=== PATIENT | female | born 1985 | race American Indian/Alaskan Native ===

== ENCOUNTER 2019-08-01 02:35 | Emergency (ER) | payer SELFPAY ==
[2019-08-01 02:48] VITALS: BP 129/94
[2019-08-01] MEDS ORDERED: HYDROcodone/ACETAMINOPHEN 5-325 MG TAB PO ONE (03:38)
[2019-08-01] MEDS ORDERED: AMOXICILLIN 250 MG/10 ML ORAL SYRINGE PO ONE (03:38)
--- NOTE | 2019-08-01 03:58 | Emergency Department Report ---
ED ENT HPI - General Chief complaint: Dental/Oral Stated complaint: TOOTHACHE Time Seen by Provider: 08/01/19 03:37 Source: patient Mode of arrival: Ambulatory Limitations: No Limitations - History of Present Illness Initial comments: Ms. Ortega is a 33 y/o aaf who presents for dental pain / x 3 weeks. pt states hx of infected dental carries but has been unable to see dentist. There is no fever, no chills, no ear or throat pain. pt is tolerating po on "opposite side" pt request referral to dentist. MD complaint: tooth pain Onset/Timin -: week(s) Location: tooth # (3) Severity: moderate Severity scale (0 -10): 7 Quality: aching Consistency: constant Improves with: none Worsens with: eating, other (hot and cold stimuli ) Context- Dental: history of dental caries, poor dental care Associated Symptoms: toothache - Related Data Previous Rx's Medication Instructions Recorded Last Taken Type Ciprofloxacin HCl [Cipro] 500 mg PO BID #20 tablet 12/25/13 Unknown Rx Hydrocortisone 2.5% [Hytone 2.5% 1 applicatio TP TID #2 tube 02/20/14 Unknown Rx CREAM] Ondansetron [Zofran] 4 mg PO Q6HR PRN #20 tablet 02/20/14 Unknown Rx Vit/Iron Fum/Folic AC 1 each PO QDAY #90 tablet 02/20/14 Unknown Rx [ Vitamin Tablet] metroNIDAZOLE 0.75%(NF) [Metrogel 1 applicatio TP BID #10 tube 02/20/14 Unknown Rx 0.75%] HYDROcodone/ACETAMINOPHEN [[place] 1 each PO Q6HR PRN #20 tablet 02/26/14 Unknown Rx 5/325 Tablet] Ibuprofen [Motrin] 600 mg PO Q8H PRN #60 tablet 02/26/14 Unknown Rx Amoxicillin [Trimox CAP] 500 mg PO BID #20 capsule 04/29/15 Unknown Rx Fluticasone [Flonase] 1 spray NS QDAY #1 bottle 04/29/15 Unknown Rx Ibuprofen [Motrin 800 MG tab] 800 mg PO Q8HR PRN #30 tablet 04/29/15 Unknown Rx guaiFENesin/CODEINE [Robitussin AC] 5 ml PO Q6HR #120 ml 04/29/15 Unknown Rx Amoxicillin [Trimox CAP] 500 mg PO Q8H 10 Days #30 capsule 08/01/19 Unknown Rx Chlorhexidine Mouthwash [Peridex] 15 ml MM BID #1 bottle 08/01/19 Unknown Rx traMADoL [Ultram] 50 mg PO Q6HR PRN #12 tablet 08/01/19 Unknown Rx Allergies Allergy/AdvReac Type Severity Reaction Status Date / Time No Known Allergies Allergy Unverified 12/24/13 22:38 ED Dental HPI - General Chief complaint: Dental/Oral Stated complaint: TOOTHACHE Time Seen by Provider: 08/01/19 03:37 Source: patient Mode of arrival: Ambulatory Limitations: No Limitations - Related Data Previous Rx's Medication Instructions Recorded Last Taken Type Ciprofloxacin HCl [Cipro] 500 mg PO BID #20 tablet 12/25/13 Unknown Rx Hydrocortisone 2.5% [Hytone 2.5% 1 applicatio TP TID #2 tube 02/20/14 Unknown Rx CREAM] Ondansetron [Zofran] 4 mg PO Q6HR PRN #20 tablet 02/20/14 Unknown Rx Vit/Iron Fum/Folic AC 1 each PO QDAY #90 tablet 02/20/14 Unknown Rx [ Vitamin Tablet] metroNIDAZOLE 0.75%(NF) [Metrogel 1 applicatio TP BID #10 tube 02/20/14 Unknown Rx 0.75%] HYDROcodone/ACETAMINOPHEN [[place] 1 each PO Q6HR PRN #20 tablet 02/26/14 Unknown Rx 5/325 Tablet] Ibuprofen [Motrin] 600 mg PO Q8H PRN #60 tablet 02/26/14 Unknown Rx Amoxicillin [Trimox CAP] 500 mg PO BID #20 capsule 04/29/15 Unknown Rx Fluticasone [Flonase] 1 spray NS QDAY #1 bottle 04/29/15 Unknown Rx Ibuprofen [Motrin 800 MG tab] 800 mg PO Q8HR PRN #30 tablet 04/29/15 Unknown Rx guaiFENesin/CODEINE [Robitussin AC] 5 ml PO Q6HR #120 ml 04/29/15 Unknown Rx Amoxicillin [Trimox CAP] 500 mg PO Q8H 10 Days #30 capsule 08/01/19 Unknown Rx Chlorhexidine Mouthwash [Peridex] 15 ml MM BID #1 bottle 08/01/19 Unknown Rx traMADoL [Ultram] 50 mg PO Q6HR PRN #12 tablet 08/01/19 Unknown Rx Allergies Allergy/AdvReac Type Severity Reaction Status Date / Time No Known Allergies Allergy Unverified 12/24/13 22:38 ED Review of Systems ROS: Stated complaint: TOOTHACHE Other details as noted in HPI Constitutional: denies: chills, fever Eyes: denies: eye pain, eye discharge, vision change ENT: dental pain Respiratory: denies: cough, shortness of breath, wheezing Cardiovascular: denies: chest pain, palpitations Endocrine: no symptoms reported Gastrointestinal: denies: abdominal pain, nausea, diarrhea Genitourinary: denies: urgency, dysuria, discharge Musculoskeletal: denies: back pain, joint swelling, arthralgia Skin: denies: rash, lesions Neurological: denies: headache, weakness, paresthesias Psychiatric: denies: anxiety, depression Hematological/Lymphatic: denies: easy bleeding, easy bruising ED Past Medical Hx - Past Medical History Previous Medical History?: No Additional medical history: denies - Surgical History Past Surgical History?: Yes Additional Surgical History: TUBAL - Social History Smoking Status: Never Smoker Substance Use Type: Alcohol, Marijuana - Medications Home Medications: Home Medications Medication Instructions Recorded Confirmed Last Taken Type Ciprofloxacin HCl [Cipro] 500 mg PO BID #20 tablet 12/25/13 Unknown Rx Hydrocortisone 2.5% [Hytone 2.5% 1 applicatio TP TID #2 tube 02/20/14 Unknown Rx CREAM] Ondansetron [Zofran] 4 mg PO Q6HR PRN #20 tablet 02/20/14 Unknown Rx Vit/Iron Fum/Folic AC 1 each PO QDAY #90 tablet 02/20/14 Unknown Rx [ Vitamin Tablet] metroNIDAZOLE 0.75%(NF) [Metrogel 1 applicatio TP BID #10 tube 02/20/14 Unknown Rx 0.75%] HYDROcodone/ACETAMINOPHEN [[place] 1 each PO Q6HR PRN #20 tablet 02/26/14 Unknown Rx 5/325 Tablet] Ibuprofen [Motrin] 600 mg PO Q8H PRN #60 tablet 02/26/14 Unknown Rx Amoxicillin [Trimox CAP] 500 mg PO BID #20 capsule 04/29/15 Unknown Rx Fluticasone [Flonase] 1 spray NS QDAY #1 bottle 08/25/15 Unknown Rx Ibuprofen [Motrin 800 MG tab] 800 mg PO Q8HR PRN #30 tablet 04/29/15 Unknown Rx guaiFENesin/CODEINE [Robitussin AC] 5 ml PO Q6HR #120 ml 04/29/15 Unknown Rx Amoxicillin [Trimox CAP] 500 mg PO Q8H 10 Days #30 capsule 08/01/19 Unknown Rx Chlorhexidine Mouthwash [Peridex] 15 ml MM BID #1 bottle 08/01/19 Unknown Rx traMADoL [Ultram] 50 mg PO Q6HR PRN #12 tablet 08/01/19 Unknown Rx ED Physical Exam - General Limitations: No Limitations General appearance: alert, in no apparent distress - Head Head exam: Present: atraumatic, normocephalic - Eye Eye exam: Present: normal appearance - ENT ENT exam: Present: mucous membranes moist, TM's normal bilaterally, normal external ear exam - Expanded ENT Exam Expanded Ear exam: Present: normal external inspection Mouth exam: Present: normal external inspection, tongue normal. Absent: trismus Teeth exam: Present: dental caries, dental tenderness # (3). Absent: gingival enlargement Throat exam: Positive: normal inspection, other (uvula midline no stridor no swelling, no lesion no exudate) - Neck Neck exam: Present: normal inspection, full ROM. Absent: tenderness, meningismus, lymphadenopathy, thyromegaly - Respiratory Respiratory exam: Present: normal lung sounds bilaterally. Absent: respiratory distress, wheezes, stridor - Cardiovascular Cardiovascular Exam: Present: regular rate, normal rhythm, normal heart sounds. Absent: systolic murmur, diastolic murmur, rubs, gallop - GI/Abdominal GI/Abdominal exam: Present: soft, normal bowel sounds - Rectal Rectal exam: Present: deferred - Extremities Exam Extremities exam: Present: normal inspection, full ROM. Absent: tenderness - Back Exam Back exam: Present: normal inspection, full ROM. Absent: tenderness - Neurological Exam Neurological exam: Present: alert, oriented X3 - Psychiatric Psychiatric exam: Present: normal affect, normal mood - Skin Skin exam: Present: warm, dry, intact, normal color. Absent: rash ED Course Vital Signs 08/01/19 02:44 Temperature 99.0 F Pulse Rate 97 H Respiratory 20 Rate Blood Pressure 129/94 O2 Sat by Pulse 94 Oximetry ED Medical Decision Making - Medical Decision Making Dx infected dental carries. plan: amoxicillin, ultram, peridex, follow up with dentist in 2-3 days. pt verbalized agreement and understanding with discharge plan. Pt dc'd to home in stable condition at this time. Critical care attestation.: If time is entered above; I have spent that time in minutes in the direct care of this critically ill patient, excluding procedure time. ED Disposition Clinical Impression: Infected dental carries Disposition: DC-01 TO HOME OR SELFCARE Is pt being admited?: No Does the pt Need Aspirin: No Condition: Stable Instructions: Toothache (ED), Dental Caries (ED) Prescriptions: Chlorhexidine Mouthwash [Peridex] 15 ml MM BID #1 bottle Amoxicillin [Trimox CAP] 500 mg PO Q8H 10 Days #30 capsule traMADoL [Ultram] 50 mg PO Q6HR PRN #12 tablet PRN Reason: Pain Referrals: [facility] [Outside] - 3-5 Days Forms: Work/School Release Form(ED) Time of Disposition: 04:12
== END 2019-08-01 04:26 | disposition home or self-care (01) ==
LOC: ED 02:35
DX: K02.9 Dental caries, unspecified (principal); F12.10 Cannabis abuse, uncomplicated; Z98.51 Tubal ligation status; Z79.899 Other long term (current) drug therapy
CPT/HCPCS: 99282

== ENCOUNTER 2019-09-13 21:03 | Emergency (ER) | payer SELFPAY ==
[2019-09-13 21:15] VITALS: BP 100/64
--- NOTE | 2019-09-13 21:29 | Event Note ---
ED Screening Note ED Screening Note: body aches and fever cough no flu shot this year pmh none rx none moaning in pain This initial assessment/diagnostic orders/clinical plan/treatment(s) is/are subject to change based on patients health status, clinical progression and re- assessment by fellow clinical providers in the ED. Further treatment and workup at subsequent clinical providers discretion. Patient/guardian urged not to elope from the ED as their condition may be serious if not clinically assessed and managed. Initial orders include: rapid flu xray
[2019-09-13] MEDS ORDERED: IBUPROFEN 800 MG TAB PO ONE (21:30)
[2019-09-13 22:50] LABS: HCG Qualitative,Urine Negative (Negative)
[2019-09-13 23:02] LABS: Bilirubin,Urine NEG (Negative); Blood,Urine NEG (Negative); Color,Urine Yellow (Yellow); Mucus,Urine 3+ /HPF; Urobilinogen,Urine < 2.0 mg/dL (<2.0)
--- NOTE | 2019-09-13 23:48 | XRay Report ---
CHEST 2 VIEWS, 09/13/2019 11:12 PM INDICATION: Cough COMPARISON: None FINDINGS: Support devices: None Heart: The heart appears normal in size. Lungs/pleura: The lungs are clear of focal airspace disease or significant pleural effusion Additional findings: None IMPRESSION: 1. No evidence of acute cardiopulmonary process. Signer Name: Akosua Sykes MD Signed: 09/13/2019 11:44 PM Workstation Name: [id number]
--- NOTE | 2019-09-14 00:33 | Emergency Department Report ---
- General Chief Complaint: Upper Respiratory Infection Stated Complaint: COUGH LIGHT HEADED VOMITING BODY ACHES Time Seen by Provider: 09/13/19 21:27 Source: patient Mode of arrival: Ambulatory Limitations: No Limitations - History of Present Illness Initial Comments: Patient is a 34-year-old female that presents emergency room with multiple complaints. Patient's complaints are productive cough, chest pain when she coughs, nausea vomiting, dizziness, headaches. Patient states her respiratory symptoms started 2 days ago. Patient states she is also having a mild headache. Patient states she is not having a headache at this time. Patient denies shortness of breath. Patient denies vomiting blood. Patient states that her symptoms are worsening. Patient states she had to miss work today due to her symptoms. Patient states her symptoms are better with rest and worse with exertion. Patient states she has not taken any [id number] medication. Patient denies allergies. MD Complaint: fever, cough, rhinorrhea, nasal congestion -: Sudden Severity: severe Associated Symptoms: fever, chills, rhinorrhea, nasal congestion, cough, chest pain, nausea, vomiting. denies: diaphoresis, sore throat, stiff neck, shortness of breath, abdominal pain, diarrhea, dysuria, rash, confusion, right sweats, weight loss, epistaxis, hoarseness, ear pain - Related Data Previous Rx's Medication Instructions Recorded Last Taken Type Ciprofloxacin HCl [Cipro] 500 mg PO BID #20 tablet 12/25/13 Unknown Rx Hydrocortisone 2.5% [Hytone 2.5% 1 applicatio TP TID #2 tube 02/20/14 Unknown Rx CREAM] Ondansetron [Zofran] 4 mg PO Q6HR PRN #20 tablet 02/20/14 Unknown Rx Vit/Iron Fum/Folic AC 1 each PO QDAY #90 tablet 02/20/14 Unknown Rx [ Vitamin Tablet] metroNIDAZOLE 0.75%(NF) [Metrogel 1 applicatio TP BID #10 tube 02/20/14 Unknown Rx 0.75%] HYDROcodone/ACETAMINOPHEN [[place] 1 each PO Q6HR PRN #20 tablet 02/26/14 Unknown Rx 5/325 Tablet] Ibuprofen [Motrin] 600 mg PO Q8H PRN #60 tablet 02/26/14 Unknown Rx Amoxicillin [Trimox CAP] 500 mg PO BID #20 capsule 04/29/15 Unknown Rx Fluticasone [Flonase] 1 spray NS QDAY #1 bottle 04/29/15 Unknown Rx Ibuprofen [Motrin 800 MG tab] 800 mg PO Q8HR PRN #30 tablet 04/29/15 Unknown Rx Amoxicillin [Trimox CAP] 500 mg PO Q8H 10 Days #30 capsule 08/01/19 Unknown Rx Chlorhexidine Mouthwash [Peridex] 15 ml MM BID #1 bottle 08/01/19 Unknown Rx traMADoL [Ultram] 50 mg PO Q6HR PRN #12 tablet 08/01/19 Unknown Rx Ondansetron [Zofran Odt] 4 mg PO Q6HR PRN #15 tab.rapdis 09/14/19 Unknown Rx Sulfamethoxazole/Trimethoprim 1 each PO BID 10 Days #20 tablet 09/14/19 Unknown Rx [Bactrim DS TAB] guaiFENesin/CODEINE [Robitussin AC] 5 ml PO Q6HR #120 ml 09/14/19 Unknown Rx methylPREDNISolone [Medrol 4MG 4 mg PO DAILY 6 Days #1 tab.ds.pk 09/14/19 Unknown Rx DOSEPAK (21 tabs)] Allergies Allergy/AdvReac Type Severity Reaction Status Date / Time No Known Allergies Allergy Unverified 12/24/13 22:38 ED Review of Systems ROS: Stated complaint: COUGH LIGHT HEADED VOMITING BODY ACHES Other details as noted in HPI Constitutional: chills, fever Eyes: denies: eye pain, eye discharge, vision change ENT: denies: ear pain, throat pain Respiratory: cough. denies: shortness of breath, SOB with exertion, SOB at rest, wheezing Cardiovascular: chest pain. denies: palpitations Endocrine: no symptoms reported Gastrointestinal: nausea, vomiting. denies: abdominal pain, diarrhea Genitourinary: denies: urgency, dysuria, discharge Musculoskeletal: denies: back pain, joint swelling, arthralgia Skin: denies: rash, lesions Neurological: denies: headache, weakness, paresthesias Psychiatric: denies: anxiety, depression Hematological/Lymphatic: denies: easy bleeding, easy bruising ED Past Medical Hx - Past Medical History Previous Medical History?: No Additional medical history: denies - Surgical History Past Surgical History?: Yes Additional Surgical History: TUBAL - Family History Family history: no significant - Social History Smoking Status: Never Smoker Substance Use Type: Marijuana - Medications Home Medications: Home Medications Medication Instructions Recorded Confirmed Last Taken Type Ciprofloxacin HCl [Cipro] 500 mg PO BID #20 tablet 12/25/13 Unknown Rx Hydrocortisone 2.5% [Hytone 2.5% 1 applicatio TP TID #2 tube 02/20/14 Unknown Rx CREAM] Ondansetron [Zofran] 4 mg PO Q6HR PRN #20 tablet 02/20/14 Unknown Rx Vit/Iron Fum/Folic AC 1 each PO QDAY #90 tablet 02/20/14 Unknown Rx [ Vitamin Tablet] metroNIDAZOLE 0.75%(NF) [Metrogel 1 applicatio TP BID #10 tube 02/20/14 Unknown Rx 0.75%] HYDROcodone/ACETAMINOPHEN [[place] 1 each PO Q6HR PRN #20 tablet 02/26/14 Unknown Rx 5/325 Tablet] Ibuprofen [Motrin] 600 mg PO Q8H PRN #60 tablet 02/26/14 Unknown Rx Amoxicillin [Trimox CAP] 500 mg PO BID #20 capsule 04/29/15 Unknown Rx Fluticasone [Flonase] 1 spray NS QDAY #1 bottle 04/29/15 Unknown Rx Ibuprofen [Motrin 800 MG tab] 800 mg PO Q8HR PRN #30 tablet 04/29/15 Unknown Rx Amoxicillin [Trimox CAP] 500 mg PO Q8H 10 Days #30 capsule 08/01/19 Unknown Rx Chlorhexidine Mouthwash [Peridex] 15 ml MM BID #1 bottle 08/01/19 Unknown Rx traMADoL [Ultram] 50 mg PO Q6HR PRN #12 tablet 08/01/19 Unknown Rx Ondansetron [Zofran Odt] 4 mg PO Q6HR PRN #15 tab.rapdis 09/14/19 Unknown Rx Sulfamethoxazole/Trimethoprim 1 each PO BID 10 Days #20 tablet 09/14/19 Unknown Rx [Bactrim DS TAB] guaiFENesin/CODEINE [Robitussin AC] 5 ml PO Q6HR #120 ml 09/14/19 Unknown Rx methylPREDNISolone [Medrol 4MG 4 mg PO DAILY 6 Days #1 tab.ds.pk 09/14/19 Unknown Rx DOSEPAK (21 tabs)] ED Physical Exam - General Limitations: No Limitations General appearance: alert, in no apparent distress - Head Head exam: Present: atraumatic, normocephalic - Eye Eye exam: Present: normal appearance - ENT ENT exam: Present: mucous membranes moist, TM's normal bilaterally, normal external ear exam, other (rhinorrhea noted.) - Neck Neck exam: Present: normal inspection - Respiratory Respiratory exam: Present: normal lung sounds bilaterally, chest wall tenderness. Absent: respiratory distress, wheezes, rales - Cardiovascular Cardiovascular Exam: Present: regular rate, normal rhythm. Absent: systolic murmur, diastolic murmur, rubs, gallop - GI/Abdominal GI/Abdominal exam: Present: soft, normal bowel sounds. Absent: distended, tenderness, guarding - Rectal Rectal exam: Present: deferred - Extremities Exam Extremities exam: Present: normal inspection - Back Exam Back exam: Present: normal inspection - Neurological Exam Neurological exam: Present: alert, oriented X3 - Psychiatric Psychiatric exam: Present: normal affect, normal mood - Skin Skin exam: Present: warm, dry, intact, normal color. Absent: rash ED Course Vital Signs 09/13/19 09/14/19 21:10 01:30 Temperature 99.8 F H Pulse Rate 103 H 88 Respiratory 18 17 Rate Blood Pressure 100/64 O2 Sat by Pulse 94 100 Oximetry - Reevaluation(s) Reevaluation #1: I discussed all results with patient. I discussed plan of care with patient. Patient agrees with plan of care. Patient is stable for discharge. Patient will be discharged home. Patient given discharge instructions. Patient voiced understanding of discharge instructions. 09/14/19 00:39 ED Medical Decision Making - Radiology Data Radiology results: report reviewed, image reviewed interpreted by me: No acute findings on chest x-ray. CHEST 2 VIEWS, 09/13/2019 11:12 PM INDICATION: Cough COMPARISON: None FINDINGS: Support devices: None Heart: The heart appears normal in size. Lungs/pleura: The lungs are clear of focal airspace disease or significant pleural effusion Additional findings: None IMPRESSION: 1. No evidence of acute cardiopulmonary process. - Medical Decision Making Patient is a 34-year-old female that presents emergency room with complaints of upper respiratory symptoms and. Clinical findings consistent with a upper respiratory infection along with UTI and gastroenteritis.. Patient's labs unremarkable except UA positive for UTI. Patient given antibiotics. UTI. Patient given Zofran for nausea vomiting. Patient given cough suppressant. - Differential Diagnosis URI, gastroenteritis, nausea vomiting, cough, UTI. Critical care attestation.: If time is entered above; I have spent that time in minutes in the direct care of this critically ill patient, excluding procedure time. ED Disposition Clinical Impression: Chest wall pain, Cough, Gastroenteritis Chest pain Qualifiers: Chest pain type: unspecified Qualified Code(s): R07.9 - Chest pain, unspecified Nausea & vomiting Qualifiers: Vomiting type: unspecified Vomiting Intractability: non-intractable Qualified Code(s): R11.2 - Nausea with vomiting, unspecified URI (upper respiratory infection) Qualifiers: URI type: unspecified URI Qualified Code(s): J06.9 - Acute upper respiratory infection, unspecified UTI (urinary tract infection) Qualifiers: Urinary tract infection type: acute cystitis Hematuria presence: with hematuria Qualified Code(s): N30.01 - Acute cystitis with hematuria Disposition: TO HOME OR SELFCARE Is pt being admited?: No Does the pt Need Aspirin: No Condition: Stable Instructions: Chest Pain (ED), Urinary Tract Infection in Women (ED), Costochondritis (ED), Upper Respiratory Infection (ED), Gastroenteritis (ED), Acute Nausea and Vomiting (ED), Cold Symptoms (ED) Additional Instructions: Patient to follow-up with primary care in 2-3 days. Patient eating a brat diet. Patient to return to ER if condition worsens. Patient to rest. Patient to increase water. Patient to take meds as directed. Patient's take Tylenol or ibuprofen when necessary for pain/fever. Prescriptions: Sulfamethoxazole/Trimethoprim [Bactrim DS TAB] 1 each PO BID 10 Days #20 tablet methylPREDNISolone [Medrol 4MG DOSEPAK (21 tabs)] 4 mg PO DAILY 6 Days #1 tab.ds.pk guaiFENesin/CODEINE [Robitussin AC] 5 ml PO Q6HR #120 ml Ondansetron [Zofran Odt] 4 mg PO Q6HR PRN #15 tab.rapdis PRN Reason: Nausea And Vomiting Referrals: PRIMARY CARE,MD [Primary Care Provider] - 2-3 Days Forms: Work/School Release Form(ED) Time of Disposition: 00:36
== END 2019-09-14 01:30 | disposition home or self-care (01) ==
LOC: ED 21:03
DX: N39.0 Urinary tract infection, site not specified (principal); J06.9 Acute upper respiratory infection, unspecified; K52.9 Noninfective gastroenteritis and colitis, unspecified; R07.89 Other chest pain; R11.2 Nausea with vomiting, unspecified; F12.10 Cannabis abuse, uncomplicated; Z79.899 Other long term (current) drug therapy
CPT/HCPCS: 71046; 81001; 81025; 87086; 87400

== ENCOUNTER 2020-10-16 12:49 | Emergency (ER) | payer SELFPAY ==
[2020-10-16 13:06] VITALS: BP 115/77
--- NOTE | 2020-10-16 13:32 | Emergency Department Report ---
ED General Adult HPI - General Chief complaint: Medical Clearance Stated complaint: CHEST PAIN/BUTTOCKS HURTS Time Seen by Provider: 10/16/20 13:11 Source: patient Mode of arrival: Ambulatory Limitations: No Limitations - History of Present Illness Initial comments: Patient is a 35-year-old female presents emergency room complaints of rectal pain that began 3 days ago. She states that she has been straining to have a bowel movement. She states it feels like itching and burning sensation. She denies any swelling, rectal bleeding, pus in the stool, fever, nausea, vomiting, diarrhea. No past medical history. No allergies to medications. Last menstrual cycle 09/25/2020. she states she is not sexually active and denies any anal intercourse. - Related Data Previous Rx's Medication Instructions Recorded Last Taken Type Ciprofloxacin HCl [Cipro] 500 mg PO BID #20 tablet 12/25/13 Unknown Rx Hydrocortisone 2.5% [Hytone 2.5% 1 applicatio TP TID #2 tube 02/20/14 Unknown Rx CREAM] Ondansetron [Zofran] 4 mg PO Q6HR PRN #20 tablet 02/20/14 Unknown Rx Vit/Iron Fum/Folic AC 1 each PO QDAY #90 tablet 02/20/14 Unknown Rx [ Vitamin Tablet] metroNIDAZOLE 0.75%(NF) [Metrogel 1 applicatio TP BID #10 tube 02/20/14 Unknown Rx 0.75%] HYDROcodone/ACETAMINOPHEN [[place] 1 each PO Q6HR PRN #20 tablet 02/26/14 Unknown Rx 5/325 Tablet] Ibuprofen [Motrin] 600 mg PO Q8H PRN #60 tablet 02/26/14 Unknown Rx Amoxicillin [Trimox CAP] 500 mg PO BID #20 capsule 04/29/15 Unknown Rx Fluticasone [Flonase] 1 spray NS QDAY #1 bottle 04/29/15 Unknown Rx Ibuprofen [Motrin 800 MG tab] 800 mg PO Q8HR PRN #30 tablet 04/29/15 Unknown Rx Amoxicillin [Trimox CAP] 500 mg PO Q8H 10 Days #30 capsule 08/01/19 Unknown Rx Chlorhexidine Mouthwash [Peridex] 15 ml MM BID #1 bottle 08/01/19 Unknown Rx traMADoL [Ultram] 50 mg PO Q6HR PRN #12 tablet 08/01/19 Unknown Rx Ondansetron [Zofran Odt] 4 mg PO Q6HR PRN #15 tab.rapdis 09/14/19 Unknown Rx Sulfamethoxazole/Trimethoprim 1 each PO BID 10 Days #20 tablet 09/14/19 Unknown Rx [Bactrim DS TAB] guaiFENesin/CODEINE [Robitussin AC] 5 ml PO Q6HR #120 ml 09/14/19 Unknown Rx methylPREDNISolone [Medrol 4MG 4 mg PO DAILY 6 Days #1 tab.ds.pk 09/14/19 Unknown Rx DOSEPAK (21 tabs)] Docusate Sodium [Colace] 100 mg PO BID #30 capsule 10/16/20 Unknown Rx Hydrocortisone 1% [Hydrocortisone 1 applicatio TP TID #1 tube 10/16/20 Unknown Rx 1% CREAM] Lidocaine [Lidocaine GEL] 1 applicatio TP BID PRN #30 10/16/20 Unknown Rx gel..gram. Polyethylene Glycol 3350 [Miralax] 7 gm PO DAILY PRN #1 powder 10/16/20 Unknown Rx Allergies Allergy/AdvReac Type Severity Reaction Status Date / Time No Known Allergies Allergy Verified 10/16/20 13:01 ED Review of Systems ROS: Stated complaint: CHEST PAIN/BUTTOCKS HURTS Other details as noted in HPI Comment: All other systems reviewed and negative ED Past Medical Hx - Past Medical History Previous Medical History?: No Additional medical history: denies - Surgical History Additional Surgical History: TUBAL - Social History Smoking Status: Never Smoker Substance Use Type: Marijuana - Medications Home Medications: Home Medications Medication Instructions Recorded Confirmed Last Taken Type Ciprofloxacin HCl [Cipro] 500 mg PO BID #20 tablet 12/25/13 Unknown Rx Hydrocortisone 2.5% [Hytone 2.5% 1 applicatio TP TID #2 tube 02/20/14 Unknown Rx CREAM] Ondansetron [Zofran] 4 mg PO Q6HR PRN #20 tablet 02/20/14 Unknown Rx Vit/Iron Fum/Folic AC 1 each PO QDAY #90 tablet 02/20/14 Unknown Rx [ Vitamin Tablet] metroNIDAZOLE 0.75%(NF) [Metrogel 1 applicatio TP BID #10 tube 02/20/14 Unknown Rx 0.75%] HYDROcodone/ACETAMINOPHEN [[place] 1 each PO Q6HR PRN #20 tablet 02/26/14 Unknown Rx 5/325 Tablet] Ibuprofen [Motrin] 600 mg PO Q8H PRN #60 tablet 02/26/14 Unknown Rx Amoxicillin [Trimox CAP] 500 mg PO BID #20 capsule 04/29/15 Unknown Rx Fluticasone [Flonase] 1 spray NS QDAY #1 bottle 04/29/15 Unknown Rx Ibuprofen [Motrin 800 MG tab] 800 mg PO Q8HR PRN #30 tablet 04/29/15 Unknown Rx Amoxicillin [Trimox CAP] 500 mg PO Q8H 10 Days #30 capsule 08/01/19 Unknown Rx Chlorhexidine Mouthwash [Peridex] 15 ml MM BID #1 bottle 08/01/19 Unknown Rx traMADoL [Ultram] 50 mg PO Q6HR PRN #12 tablet 08/01/19 Unknown Rx Ondansetron [Zofran Odt] 4 mg PO Q6HR PRN #15 tab.rapdis 09/14/19 Unknown Rx Sulfamethoxazole/Trimethoprim 1 each PO BID 10 Days #20 tablet 09/14/19 Unknown Rx [Bactrim DS TAB] guaiFENesin/CODEINE [Robitussin AC] 5 ml PO Q6HR #120 ml 09/14/19 Unknown Rx methylPREDNISolone [Medrol 4MG 4 mg PO DAILY 6 Days #1 tab.ds.pk 09/14/19 Unknown Rx DOSEPAK (21 tabs)] Docusate Sodium [Colace] 100 mg PO BID #30 capsule 10/16/20 Unknown Rx Hydrocortisone 1% [Hydrocortisone 1 applicatio TP TID #1 tube 10/16/20 Unknown Rx 1% CREAM] Lidocaine [Lidocaine GEL] 1 applicatio TP BID PRN #30 10/16/20 Unknown Rx gel..gram. Polyethylene Glycol 3350 [Miralax] 7 gm PO DAILY PRN #1 powder 10/16/20 Unknown Rx ED Physical Exam - General Limitations: No Limitations General appearance: alert, in no apparent distress - Head Head exam: Present: atraumatic, normocephalic - Eye Eye exam: Present: normal appearance - ENT ENT exam: Present: mucous membranes moist - Respiratory Respiratory exam: Present: normal lung sounds bilaterally. Absent: respiratory distress, wheezes, rales, rhonchi, stridor, chest wall tenderness, accessory muscle use, decreased breath sounds, prolonged expiratory - Cardiovascular Cardiovascular Exam: Present: regular rate, normal rhythm, normal heart sounds. Absent: systolic murmur, diastolic murmur, rubs, gallop - GI/Abdominal GI/Abdominal exam: Present: soft, normal bowel sounds. Absent: distended, tenderness, guarding, rebound, rigid - Rectal Rectal exam: Present: other (there is a one cm anal fissure/tear present at the 12 oclock position, no gross blood, no induration, no edema, no surrounding erythema, vice president biostatistics: IMMANUEL gibbons) ED Course Vital Signs 10/16/20 13:04 Temperature 98.4 F Pulse Rate 83 Respiratory 16 Rate Blood Pressure 115/77 O2 Sat by Pulse 99 Oximetry ED Medical Decision Making - Medical Decision Making Patient is a 35-year-old female presents emergency room complaints of rectal pain that began 3 days ago. She states that she has been straining to have a bowel movement. She states it feels like itching and burning sensation. She denies any swelling, rectal bleeding, pus in the stool, fever, nausea, vomiting, diarrhea. No past medical history. No allergies to medications. Last menstrual cycle 09/25/2020. she states she is not sexually active and denies any anal intercourse. Vitals are normal. On exam: there is a one cm anal fissure/tear present at the 12 oclock position, no gross blood, no induration, no edema, no surrounding erythema, vice president biostatistics: IMMANUEL gibbons. Examination consistent with anal fissure/tear. Discussed findings with patient. Patient given prescription for hydrocortisone, lidocaine gel, Colace, MiraLAX. Advised patient Please use medication as prescribed. increase your water intake. increase your fiber intake. Follow-up with a primary care doctor for reexamination. Return to emergency room for any new or worsening symptoms as discussed. Critical care attestation.: If time is entered above; I have spent that time in minutes in the direct care of this critically ill patient, excluding procedure time. ED Disposition Clinical Impression: Anal fissure Disposition: - TO HOME OR SELFCARE Is pt being admited?: No Does the pt Need Aspirin: No Condition: Stable Instructions: How to Take a Sitz Bath, Anal Fissure, Adult Additional Instructions: Please use medication as prescribed. increase your water intake. increase your fiber intake. Follow-up with a primary care doctor for reexamination. Return to emergency room for any new or worsening symptoms as discussed. Prescriptions: Docusate Sodium [Colace] 100 mg PO BID #30 capsule Hydrocortisone 1% [Hydrocortisone 1% CREAM] 1 applicatio TP TID #1 tube Lidocaine [Lidocaine GEL] 1 applicatio TP BID PRN #30 gel..gram. PRN Reason: rectal pain Polyethylene Glycol 3350 [Miralax] 7 gm PO DAILY PRN #1 powder PRN Reason: constipation Referrals: [facility] [Provider Group] - 2-3 Days SAM GARLAND MD [Staff Physician] - 2-3 Days Forms: Work/School Release Form(ED) Time of Disposition: 13:30 Print Language: JAPANESE
== END 2020-10-16 13:50 | disposition home or self-care (01) ==
LOC: ED 12:49
DX: K60.2 Anal fissure, unspecified (principal); F12.10 Cannabis abuse, uncomplicated; Z79.899 Other long term (current) drug therapy
CPT/HCPCS: 99282

== ENCOUNTER 2020-10-17 02:05 | Emergency (ER) | payer SELFPAY ==
[2020-10-17 03:04] VITALS: BP 100/82
[2020-10-17] MEDS ORDERED: HYDROcodone/ACETAMINOPHEN 5-325 MG TAB PO ONE (03:21)
[2020-10-17] MEDS ORDERED: LIDOCAINE-MPF (1%) 10 MG/1 ML VIAL 5 ML INFILTRATI ONE (03:21)
--- NOTE | 2020-10-17 03:31 | Emergency Department Report ---
ED General Adult HPI - General Chief complaint: Urogenital-Female Stated complaint: BURNING PAIN IN ANUS/RETURN VISIT Time Seen by Provider: 10/17/20 03:18 Source: patient Mode of arrival: Ambulatory Limitations: No Limitations - History of Present Illness Initial comments: Patient diagnosed with anal fissure on yesterday in same ED , presents for increased pain tonight. Patient described pain as sharp 03/14 , she denies purulent drainage., States symptoms occurring since 05 September. There is been no fevers, chills, chest pain, shortness of breath, abdominal pain. - Related Data Previous Rx's Medication Instructions Recorded Last Taken Type Ciprofloxacin HCl [Cipro] 500 mg PO BID #20 tablet 12/25/13 Unknown Rx Hydrocortisone 2.5% [Hytone 2.5% 1 applicatio TP TID #2 tube 02/20/14 Unknown Rx CREAM] Ondansetron [Zofran] 4 mg PO Q6HR PRN #20 tablet 02/20/14 Unknown Rx Vit/Iron Fum/Folic AC 1 each PO QDAY #90 tablet 02/20/14 Unknown Rx [ Vitamin Tablet] metroNIDAZOLE 0.75%(NF) [Metrogel 1 applicatio TP BID #10 tube 02/20/14 Unknown Rx 0.75%] HYDROcodone/ACETAMINOPHEN [[place] 1 each PO Q6HR PRN #20 tablet 02/26/14 Unknown Rx 5/325 Tablet] Ibuprofen [Motrin] 600 mg PO Q8H PRN #60 tablet 02/26/14 Unknown Rx Amoxicillin [Trimox CAP] 500 mg PO BID #20 capsule 04/29/15 Unknown Rx Fluticasone [Flonase] 1 spray NS QDAY #1 bottle 04/29/15 Unknown Rx Ibuprofen [Motrin 800 MG tab] 800 mg PO Q8HR PRN #30 tablet 04/29/15 Unknown Rx Amoxicillin [Trimox CAP] 500 mg PO Q8H 10 Days #30 capsule 08/01/19 Unknown Rx Chlorhexidine Mouthwash [Peridex] 15 ml MM BID #1 bottle 08/01/19 Unknown Rx traMADoL [Ultram] 50 mg PO Q6HR PRN #12 tablet 08/01/19 Unknown Rx Ondansetron [Zofran Odt] 4 mg PO Q6HR PRN #15 tab.rapdis 09/14/19 Unknown Rx Sulfamethoxazole/Trimethoprim 1 each PO BID 10 Days #20 tablet 09/14/19 Unknown Rx [Bactrim DS TAB] guaiFENesin/CODEINE [Robitussin AC] 5 ml PO Q6HR #120 ml 09/14/19 Unknown Rx methylPREDNISolone [Medrol 4MG 4 mg PO DAILY 6 Days #1 tab.ds.pk 09/14/19 Unknown Rx DOSEPAK (21 tabs)] Docusate Sodium [Colace] 100 mg PO BID #30 capsule 10/16/20 Unknown Rx Hydrocortisone 1% [Hydrocortisone 1 applicatio TP TID #1 tube 10/16/20 Unknown Rx 1% CREAM] Lidocaine [Lidocaine GEL] 1 applicatio TP BID PRN #30 10/16/20 Unknown Rx gel..gram. Polyethylene Glycol 3350 [Miralax] 7 gm PO DAILY PRN #1 powder 10/16/20 Unknown Rx metroNIDAZOLE [Flagyl] 500 mg PO BID 7 Days #14 tab 10/17/20 Unknown Rx Allergies Allergy/AdvReac Type Severity Reaction Status Date / Time No Known Allergies Allergy Verified 10/16/20 13:01 ED Review of Systems ROS: Stated complaint: BURNING PAIN IN ANUS/RETURN VISIT Other details as noted in HPI Constitutional: denies: chills, fever Eyes: denies: eye pain, eye discharge, vision change ENT: denies: ear pain, throat pain Respiratory: denies: cough, shortness of breath, wheezing Cardiovascular: denies: chest pain, palpitations Endocrine: no symptoms reported Gastrointestinal: abdominal pain (LL abd). denies: nausea, vomiting, diarrhea Genitourinary: dyspareunia. denies: urgency, dysuria, discharge Musculoskeletal: back pain (bilat flank ). denies: joint swelling, arthralgia Skin: denies: rash, lesions Neurological: denies: headache, weakness, paresthesias Psychiatric: denies: anxiety, depression Hematological/Lymphatic: as per HPI ED Past Medical Hx - Past Medical History Previous Medical History?: No Additional medical history: denies - Surgical History Past Surgical History?: Yes Additional Surgical History: TUBAL - Social History Smoking Status: Never Smoker Substance Use Type: None - Medications Home Medications: Home Medications Medication Instructions Recorded Confirmed Last Taken Type Ciprofloxacin HCl [Cipro] 500 mg PO BID #20 tablet 12/25/13 Unknown Rx Hydrocortisone 2.5% [Hytone 2.5% 1 applicatio TP TID #2 tube 02/20/14 Unknown Rx CREAM] Ondansetron [Zofran] 4 mg PO Q6HR PRN #20 tablet 02/20/14 Unknown Rx Vit/Iron Fum/Folic AC 1 each PO QDAY #90 tablet 02/20/14 Unknown Rx [ Vitamin Tablet] metroNIDAZOLE 0.75%(NF) [Metrogel 1 applicatio TP BID #10 tube 02/20/14 Unknown Rx 0.75%] HYDROcodone/ACETAMINOPHEN [[place] 1 each PO Q6HR PRN #20 tablet 02/26/14 Unknown Rx 5/325 Tablet] Ibuprofen [Motrin] 600 mg PO Q8H PRN #60 tablet 02/26/14 Unknown Rx Amoxicillin [Trimox CAP] 500 mg PO BID #20 capsule 04/29/15 Unknown Rx Fluticasone [Flonase] 1 spray NS QDAY #1 bottle 04/29/15 Unknown Rx Ibuprofen [Motrin 800 MG tab] 800 mg PO Q8HR PRN #30 tablet 04/29/15 Unknown Rx Amoxicillin [Trimox CAP] 500 mg PO Q8H 10 Days #30 capsule 08/01/19 Unknown Rx Chlorhexidine Mouthwash [Peridex] 15 ml MM BID #1 bottle 08/01/19 Unknown Rx traMADoL [Ultram] 50 mg PO Q6HR PRN #12 tablet 08/01/19 Unknown Rx Ondansetron [Zofran Odt] 4 mg PO Q6HR PRN #15 tab.rapdis 09/14/19 Unknown Rx Sulfamethoxazole/Trimethoprim 1 each PO BID 10 Days #20 tablet 09/14/19 Unknown Rx [Bactrim DS TAB] guaiFENesin/CODEINE [Robitussin AC] 5 ml PO Q6HR #120 ml 09/14/19 Unknown Rx methylPREDNISolone [Medrol 4MG 4 mg PO DAILY 6 Days #1 tab.ds.pk 09/14/19 Unknown Rx DOSEPAK (21 tabs)] Docusate Sodium [Colace] 100 mg PO BID #30 capsule 10/16/20 Unknown Rx Hydrocortisone 1% [Hydrocortisone 1 applicatio TP TID #1 tube 10/16/20 Unknown Rx 1% CREAM] Lidocaine [Lidocaine GEL] 1 applicatio TP BID PRN #30 10/16/20 Unknown Rx gel..gram. Polyethylene Glycol 3350 [Miralax] 7 gm PO DAILY PRN #1 powder 10/16/20 Unknown Rx metroNIDAZOLE [Flagyl] 500 mg PO BID 7 Days #14 tab 10/17/20 Unknown Rx ED Physical Exam - General Limitations: No Limitations General appearance: alert, in no apparent distress - Head Head exam: Present: atraumatic, normocephalic - Eye Eye exam: Present: normal appearance, EOMI Pupils: Present: normal accommodation - ENT ENT exam: Present: mucous membranes moist - Neck Neck exam: Present: normal inspection, full ROM. Absent: tenderness, lymphade nopathy - Respiratory Respiratory exam: Present: normal lung sounds bilaterally. Absent: respiratory distress, wheezes, stridor, chest wall tenderness - Cardiovascular Cardiovascular Exam: Present: regular rate, normal rhythm, normal heart sounds. Absent: systolic murmur, diastolic murmur, rubs, gallop - GI/Abdominal GI/Abdominal exam: Present: soft, normal bowel sounds. Absent: distended, tenderness, guarding, rebound, rigid, bruit, hernia - Rectal Rectal exam: Present: deferred - External exam: Present: normal external exam Speculum exam: Present: erythema, vaginal discharge (white thick malodorous ). Absent: cervical discharge, vaginal bleeding, foreign body Bi-manual exam: Present: cervical motion tendernes - Extremities Exam Extremities exam: Present: normal inspection, full ROM, normal capillary refill. Absent: tenderness - Back Exam Back exam: Present: normal inspection, full ROM, tenderness, CVA tenderness (R), CVA tenderness (L) - Neurological Exam Neurological exam: Present: alert, oriented X3, CN II-XII intact, normal gait - Psychiatric Psychiatric exam: Present: normal affect, normal mood - Skin Skin exam: Present: warm, dry, intact, normal color. Absent: rash ED Course Vital Signs 10/17/20 02:57 Temperature 99.1 F Pulse Rate 59 L Respiratory 18 Rate Blood Pressure 100/82 O2 Sat by Pulse 99 Oximetry ED Medical Decision Making - Lab Data Result diagrams: 10/17/20 03:39 10/17/20 03:39 Labs 10/17/20 10/17/20 10/17/20 03:39 03:39 04:00 WBC 6.9 RBC 4.08 Hgb 12.5 Hct 37.3 MCV 92 MCH 31 MCHC 34 RDW 14.6 Plt Count 172 Lymph % (Auto) 20.5 [place] % (Auto) 10.6 H Eos % (Auto) 0.3 Baso % (Auto) 0.3 Lymph # (Auto) 1.4 [place] # (Auto) 0.7 Eos # (Auto) 0.0 Baso # (Auto) 0.0 Seg Neutrophils % 68.3 Seg Neutrophils # 4.7 Sodium 136 L Potassium 4.2 Chloride 99.8 Carbon Dioxide 28 Anion Gap 12 BUN 10 Creatinine 0.9 Estimated GFR > 60 BUN/Creatinine Ratio 11 Glucose 82 Calcium 9.0 Urine Color Yellow Urine Turbidity Slightly-cloudy Urine pH 6.0 Ur Specific [place] 1.012 Urine Protein <15 mg/dl Urine Glucose (UA) Neg Urine Ketones Neg Urine Blood Neg Urine Nitrite Neg Urine Bilirubin Neg Urine Urobilinogen < 2.0 Ur Leukocyte Esterase Lg Urine WBC (Auto) < 1.0 Urine RBC (Auto) < 1.0 U Epithel Cells (Auto) < 1.0 Urine Mucus 3+ Urine HCG, Qual Negative - EKG Data EKG shows normal: sinus rhythm Rate: normal - Medical Decision Making Symptoms are improved with medications given in ED. Plan DC to home with prescriptions. Patient will follow with primary care doctor in 2 to 3 days. Patient verbalized agreement and understanding with discharge plan. Patient will be DC'd home at this time. Critical care attestation.: If time is entered above; I have spent that time in minutes in the direct care o f this critically ill patient, excluding procedure time. ED Disposition Clinical Impression: Vaginitis Qualifiers: Chronicity: acute Qualified Code(s): N76.0 - Acute vaginitis Disposition: DC-01 TO HOME OR SELFCARE Is pt being admited?: No Does the pt Need Aspirin: No Condition: Stable Instructions: Vaginitis Prescriptions: metroNIDAZOLE [Flagyl] 500 mg PO BID 7 Days #14 tab Referrals: MONTEZ MONACO MD [Staff Physician] - 3-5 Days Forms: Work/School Release Form(ED) Time of Disposition: 05:58
[2020-10-17] MEDS ORDERED: SODIUM CHLORIDE 0.9% 1000 ML 1,000 ML IV ONE (03:32)
[2020-10-17] MEDS ORDERED: ONDANSETRON 4 MG/2 ML INJ IV ONE (03:45)
[2020-10-17] MEDS ORDERED: MORPHINE 4 MG/1 ML INJ IV ONE (03:45)
[2020-10-17 04:14] LABS: Basophils % (Auto) 0.3 % (0.0-1.8); Eosinophils % (Auto) 0.3 % (0.0-4.3); Hematocrit 37.3 % (30.3-42.9); Hemoglobin 12.5 gm/dl (10.1-14.3); Lymphocytes # (Auto) 1.4 K/mm3 (1.2-5.4); Lymphocytes % (Auto) 20.5 % (13.4-35.0); Mean Corpuscular HGB Conc 34 % (30-34); Mean Corpuscular Volume 92 fl (79-97); Monocytes # (Auto) 0.7 K/mm3 (0.0-0.8); Monocytes % (Auto) 10.6 % (0.0-7.3); Platelet Count 172 K/mm3 (140-440); Red Blood Count 4.08 M/mm3 (3.65-5.03); Red Cell Distribution Width 14.6 % (13.2-15.2)
[2020-10-17 05:10] LABS: BUN/Creatinine Ratio 11; Blood Urea Nitrogen 10 mg/dL (7-17); Hemolysis Index 14
[2020-10-17 05:20] LABS: Bilirubin,Urine NEG (Negative); Blood,Urine NEG (Negative); Color,Urine Yellow (Yellow); Mucus,Urine 3+ /HPF; Protein,Urine <15 mg/dL mg/dL (Negative); Urobilinogen,Urine < 2.0 mg/dL (<2.0); WBC,Urine < 1.0 /HPF (0.0-6.0)
[2020-10-17 05:21] LABS: HCG Qualitative,Urine Negative (Negative); RBC,Urine < 1.0 /HPF (0.0-6.0)
[2020-10-17] MEDS ORDERED: AZITHROMYCIN 250 MG TAB PO ONE (05:28)
[2020-10-17] MEDS ORDERED: cefTRIAXone/NS 1 GM/50 ML 1 GM/50 ML BAG IV ONE (05:28)
== END 2020-10-17 06:35 | disposition home or self-care (01) ==
LOC: ED 02:05
DX: N76.0 Acute vaginitis (principal); Z98.51 Tubal ligation status; Z79.899 Other long term (current) drug therapy
CPT/HCPCS: 36415; 80048; 81001; 81025; 85025; 87210; 87591; 96361; 96365; 96375; 99284; J0696; J2270; J2405; J7030

== ENCOUNTER 2020-12-30 00:23 | Emergency (ER) | payer SELFPAY ==
[2020-12-30 00:41] VITALS: BP 110/56
== END 2020-12-30 08:52 ==
LOC: ED 00:23
DX: R22.9 Localized swelling, mass and lump, unspecified (principal); Z53.21 Procedure and treatment not carried out due to patient leaving prior to being seen by health care provider

== ENCOUNTER 2021-01-11 13:29 | Emergency (ER) | payer SELFPAY ==
[2021-01-11 14:05] VITALS: BP 121/84
[2021-01-11] MEDS ORDERED: MORPHINE 4 MG/1 ML INJ IM ONE (15:33)
--- NOTE | 2021-01-11 15:47 | Emergency Department Report ---
- General Chief complaint: Urogenital-Female Stated complaint: BUMP ON VIGINA Time Seen by Provider: 01/11/21 13:31 Source: patient Mode of arrival: Ambulatory Limitations: No Limitations - History of Present Illness Initial comments: This is a 35-year-old female nontoxic, well nourished in appearance, no acute signs of distress presents to the ED with c/o of swelling and pain to left labia majora x1 week. Patient denies any pus or drainage. Patient stated she was seen in [facility] and had an incision and drainage but was instructed on no purulent drainage came out and if symptoms worsen to return to the ER. Patient stated she came into this emergency room for that. Patient denies any fever, chills, nausea, vomiting, chest pain, shortness of breath, headache or stiff neck. Patient denies any allergies or significant past medical history. MD complaint: abscess/boil -: week(s) Severity: mild Severity scale (0 -10): 8 Quality: aching Consistency: constant Improves with: none Worsens with: none Context: none Associated symptoms: denies other symptoms - Related Data Previous Rx's Medication Instructions Recorded Last Taken Type Ciprofloxacin HCl [Cipro] 500 mg PO BID #20 tablet 12/25/13 Unknown Rx Hydrocortisone 2.5% [Hytone 2.5% 1 applicatio TP TID #2 tube 02/20/14 Unknown Rx CREAM] Ondansetron [Zofran] 4 mg PO Q6HR PRN #20 tablet 02/20/14 Unknown Rx Vit/Iron Fum/Folic AC 1 each PO QDAY #90 tablet 02/20/14 Unknown Rx [ Vitamin Tablet] metroNIDAZOLE 0.75%(NF) [Metrogel 1 applicatio TP BID #10 tube 02/20/14 Unknown Rx 0.75%] HYDROcodone/ACETAMINOPHEN [[place] 1 each PO Q6HR PRN #20 tablet 02/26/14 Unknown Rx 5/325 Tablet] Ibuprofen [Motrin] 600 mg PO Q8H PRN #60 tablet 02/26/14 Unknown Rx Amoxicillin [Trimox CAP] 500 mg PO BID #20 capsule 04/29/15 Unknown Rx Fluticasone [Flonase] 1 spray NS QDAY #1 bottle 04/29/15 Unknown Rx Ibuprofen [Motrin 800 MG tab] 800 mg PO Q8HR PRN #30 tablet 04/29/15 Unknown Rx Amoxicillin [Trimox CAP] 500 mg PO Q8H 10 Days #30 capsule 08/01/19 Unknown Rx Chlorhexidine Mouthwash [Peridex] 15 ml MM BID #1 bottle 08/01/19 Unknown Rx traMADoL [Ultram] 50 mg PO Q6HR PRN #12 tablet 08/01/19 Unknown Rx Ondansetron [Zofran Odt] 4 mg PO Q6HR PRN #15 tab.rapdis 09/14/19 Unknown Rx Sulfamethoxazole/Trimethoprim 1 each PO BID 10 Days #20 tablet 09/14/19 Unknown Rx [Bactrim DS TAB] guaiFENesin/CODEINE [Robitussin AC] 5 ml PO Q6HR #120 ml 09/14/19 Unknown Rx methylPREDNISolone [Medrol 4MG 4 mg PO DAILY 6 Days #1 tab.ds.pk 09/14/19 Unknown Rx DOSEPAK (21 tabs)] Docusate Sodium [Colace] 100 mg PO BID #30 capsule 10/16/20 Unknown Rx Hydrocortisone 1% [Hydrocortisone 1 applicatio TP TID #1 tube 10/16/20 Unknown Rx 1% CREAM] Lidocaine [Lidocaine GEL] 1 applicatio TP BID PRN #30 10/16/20 Unknown Rx gel..gram. Polyethylene Glycol 3350 [Miralax] 7 gm PO DAILY PRN #1 powder 10/16/20 Unknown Rx metroNIDAZOLE [Flagyl] 500 mg PO BID 7 Days #14 tab 10/17/20 Unknown Rx Acetaminophen/Codeine [Tylenol 1 tab PO Q6H PRN #12 tab 01/11/21 Unknown Rx /Codeine # 3 tab] Clindamycin [Clindamycin CAP] 300 mg PO Q8H #21 cap 01/11/21 Unknown Rx Allergies Allergy/AdvReac Type Severity Reaction Status Date / Time No Known Allergies Allergy Verified 10/16/20 13:01 Abscess Boil HPI - HPI Chief Complaint: Urogenital-Female Stated Complaint: BUMP ON VIGINA Time Seen by Provider: 01/11/21 13:31 Home Medications: Previous Rx's Medication Instructions Recorded Last Taken Type Ciprofloxacin HCl [Cipro] 500 mg PO BID #20 tablet 12/25/13 Unknown Rx Hydrocortisone 2.5% [Hytone 2.5% 1 applicatio TP TID #2 tube 02/20/14 Unknown Rx CREAM] Ondansetron [Zofran] 4 mg PO Q6HR PRN #20 tablet 02/20/14 Unknown Rx Vit/Iron Fum/Folic AC 1 each PO QDAY #90 tablet 02/20/14 Unknown Rx [ Vitamin Tablet] metroNIDAZOLE 0.75%(NF) [Metrogel 1 applicatio TP BID #10 tube 02/20/14 Unknown Rx 0.75%] HYDROcodone/ACETAMINOPHEN [[place] 1 each PO Q6HR PRN #20 tablet 02/26/14 Unknown Rx 5/325 Tablet] Ibuprofen [Motrin] 600 mg PO Q8H PRN #60 tablet 02/26/14 Unknown Rx Amoxicillin [Trimox CAP] 500 mg PO BID #20 capsule 04/29/15 Unknown Rx Fluticasone [Flonase] 1 spray NS QDAY #1 bottle 04/29/15 Unknown Rx Ibuprofen [Motrin 800 MG tab] 800 mg PO Q8HR PRN #30 tablet 04/29/15 Unknown Rx Amoxicillin [Trimox CAP] 500 mg PO Q8H 10 Days #30 capsule 08/01/19 Unknown Rx Chlorhexidine Mouthwash [Peridex] 15 ml MM BID #1 bottle 08/01/19 Unknown Rx traMADoL [Ultram] 50 mg PO Q6HR PRN #12 tablet 08/01/19 Unknown Rx Ondansetron [Zofran Odt] 4 mg PO Q6HR PRN #15 tab.rapdis 09/14/19 Unknown Rx Sulfamethoxazole/Trimethoprim 1 each PO BID 10 Days #20 tablet 09/14/19 Unknown Rx [Bactrim DS TAB] guaiFENesin/CODEINE [Robitussin AC] 5 ml PO Q6HR #120 ml 09/14/19 Unknown Rx methylPREDNISolone [Medrol 4MG 4 mg PO DAILY 6 Days #1 tab.ds.pk 09/14/19 Unknown Rx DOSEPAK (21 tabs)] Docusate Sodium [Colace] 100 mg PO BID #30 capsule 10/16/20 Unknown Rx Hydrocortisone 1% [Hydrocortisone 1 applicatio TP TID #1 tube 10/16/20 Unknown Rx 1% CREAM] Lidocaine [Lidocaine GEL] 1 applicatio TP BID PRN #30 10/16/20 Unknown Rx gel..gram. Polyethylene Glycol 3350 [Miralax] 7 gm PO DAILY PRN #1 powder 10/16/20 Unknown Rx metroNIDAZOLE [Flagyl] 500 mg PO BID 7 Days #14 tab 10/17/20 Unknown Rx Acetaminophen/Codeine [Tylenol 1 tab PO Q6H PRN #12 tab 01/11/21 Unknown Rx /Codeine # 3 tab] Clindamycin [Clindamycin CAP] 300 mg PO Q8H #21 cap 01/11/21 Unknown Rx Allergies/Adverse Reactions: Allergies Allergy/AdvReac Type Severity Reaction Status Date / Time No Known Allergies Allergy Verified 10/16/20 13:01 ED Review of Systems ROS: Stated complaint: BUMP ON VIGINA Other details as noted in HPI Comment: All other systems reviewed and negative Constitutional: denies: chills, fever Eyes: denies: eye pain, eye discharge, vision change ENT: denies: ear pain, throat pain Respiratory: denies: cough, shortness of breath, wheezing Cardiovascular: denies: chest pain, palpitations Endocrine: no symptoms reported Gastrointestinal: denies: abdominal pain, nausea, diarrhea Genitourinary: denies: urgency, dysuria, discharge Musculoskeletal: denies: back pain, joint swelling, arthralgia Skin: denies: rash, lesions Neurological: denies: headache, weakness, paresthesias Psychiatric: denies: anxiety, depression Hematological/Lymphatic: denies: easy bleeding, easy bruising ED Past Medical Hx - Past Medical History Previous Medical History?: No Additional medical history: denies - Surgical History Past Surgical History?: Yes Additional Surgical History: TUBAL - Social History Smoking Status: Current Every Day Smoker Substance Use Type: Alcohol, Marijuana - Medications Home Medications: Home Medications Medication Instructions Recorded Confirmed Last Taken Type Ciprofloxacin HCl [Cipro] 500 mg PO BID #20 tablet 12/25/13 Unknown Rx Hydrocortisone 2.5% [Hytone 2.5% 1 applicatio TP TID #2 tube 02/20/14 Unknown Rx CREAM] Ondansetron [Zofran] 4 mg PO Q6HR PRN #20 tablet 02/20/14 Unknown Rx Vit/Iron Fum/Folic AC 1 each PO QDAY #90 tablet 02/20/14 Unknown Rx [ Vitamin Tablet] metroNIDAZOLE 0.75%(NF) [Metrogel 1 applicatio TP BID #10 tube 02/20/14 Unknown Rx 0.75%] HYDROcodone/ACETAMINOPHEN [[place] 1 each PO Q6HR PRN #20 tablet 02/26/14 Unknown Rx 5/325 Tablet] Ibuprofen [Motrin] 600 mg PO Q8H PRN #60 tablet 02/26/14 Unknown Rx Amoxicillin [Trimox CAP] 500 mg PO BID #20 capsule 04/29/15 Unknown Rx Fluticasone [Flonase] 1 spray NS QDAY #1 bottle 04/29/15 Unknown Rx Ibuprofen [Motrin 800 MG tab] 800 mg PO Q8HR PRN #30 tablet 04/29/15 Unknown Rx Amoxicillin [Trimox CAP] 500 mg PO Q8H 10 Days #30 capsule 08/01/19 Unknown Rx Chlorhexidine Mouthwash [Peridex] 15 ml MM BID #1 bottle 08/01/19 Unknown Rx traMADoL [Ultram] 50 mg PO Q6HR PRN #12 tablet 08/01/19 Unknown Rx Ondansetron [Zofran Odt] 4 mg PO Q6HR PRN #15 tab.rapdis 09/14/19 Unknown Rx Sulfamethoxazole/Trimethoprim 1 each PO BID 10 Days #20 tablet 09/14/19 Unknown Rx [Bactrim DS TAB] guaiFENesin/CODEINE [Robitussin AC] 5 ml PO Q6HR #120 ml 09/14/19 Unknown Rx methylPREDNISolone [Medrol 4MG 4 mg PO DAILY 6 Days #1 tab.ds.pk 09/14/19 Unknown Rx DOSEPAK (21 tabs)] Docusate Sodium [Colace] 100 mg PO BID #30 capsule 10/16/20 Unknown Rx Hydrocortisone 1% [Hydrocortisone 1 applicatio TP TID #1 tube 10/16/20 Unknown Rx 1% CREAM] Lidocaine [Lidocaine GEL] 1 applicatio TP BID PRN #30 10/16/20 Unknown Rx gel..gram. Polyethylene Glycol 3350 [Miralax] 7 gm PO DAILY PRN #1 powder 10/16/20 Unknown Rx metroNIDAZOLE [Flagyl] 500 mg PO BID 7 Days #14 tab 10/17/20 Unknown Rx Acetaminophen/Codeine [Tylenol 1 tab PO Q6H PRN #12 tab 01/11/21 Unknown Rx /Codeine # 3 tab] Clindamycin [Clindamycin CAP] 300 mg PO Q8H #21 cap 01/11/21 Unknown Rx ED Physical Exam - General Limitations: No Limitations General appearance: alert, in no apparent distress - Head Head exam: Present: atraumatic, normocephalic - Eye Eye exam: Present: normal appearance - Neck Neck exam: Present: normal inspection, full ROM - Respiratory Respiratory exam: Absent: respiratory distress - Cardiovascular Cardiovascular Exam: Present: regular rate - GI/Abdominal GI/Abdominal exam: Present: soft, normal bowel sounds. 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 Absent: erythema, lesions, lacerations, ecchymosis, bleeding - Extremities Exam Extremities exam: Present: full ROM - Back Exam Back exam: Present: normal inspection, full ROM - Neurological Exam Neurological exam: Present: alert, oriented X3, normal gait - Psychiatric Psychiatric exam: Present: normal affect, normal mood - Skin Skin exam: Present: warm, dry, intact, normal color. Absent: rash ED Course Vital Signs 01/11/21 01/11/21 13:58 15:40 Temperature 98.6 F Pulse Rate 98 H Respiratory 20 20 Rate Blood Pressure 121/84 O2 Sat by Pulse 100 Oximetry - Reevaluation(s) Reevaluation #1: 01/11/21 15:47 Patient is speaking in full sentences with no signs of distress noted. - I & D Left Pubic Area Type of Procedure: Simple Blade Size: 11 I & D Procedure: betadine prep, sterile drapes applied, sterile dressing applied, gauze wick placed Progress: Under sterile field, I used Betadine to cleanse the area. I then used 2% lidocaine plain with 25-gauge 5/8 needle to inject area for anesthetic purposes. Total volume injected 3 mL. I then used an 11 blade to make a 1 cm incision. About 2 mL's of purulent drainage has been noted. I then used a hemostat to br eak the abscess formation. I then used sterile 0.9% normal saline flush to flush the wound with total volume of 40 mL used. I then put a 1/4 iodoform packing to the incision. A sterile 4 x 4 with tape has been applied as dressing. Bleeding is under control. Patient tolerated the procedure well with no signs of distress noted. ED Medical Decision Making - Medical Decision Making This is a 35-year-old female that presents with Bartholow abscess. Patient is stable and was examined by me. This is incision and drainage and has been performed and patient tolerated well. A sterile dressing has been applied. Patient was educated on proper wound care. Patient is discharged with clindamycin and Tylenol with codeine and was instructed not to operate any machinery while taking Tylenol with codeine due to drowsiness. Patient was instructed to return in 2 days for packing removal. Patient was instructed to refer to Follow-up with a primary care doctor in 3-5 days or if symptoms worsen and continue return to emergency room as soon as possible. At time of discharge, the patient does not seem toxic or ill in appearance. No acute signs of distress noted. Patient agrees to discharge treatment plan of care. No further questions noted by the patient. Critical care attestation.: If time is entered above; I have spent that time in minutes in the direct care of this critically ill patient, excluding procedure time. ED Disposition Clinical Impression: Cyst of left Bartholin's gland, Encounter for incision and drainage procedure Disposition: DC- TO HOME OR SELFCARE Is pt being admited?: No Does the pt Need Aspirin: No Condition: Stable Instructions: Bartholin's Cyst, [id number], Incision and Drainage, Care After Additional Instructions: Follow-up with a primary care doctor in 3-5 days or if symptoms worsen and continue return to emergency room as soon as possible. Return in 2 days for packing removal. Prescriptions: Clindamycin [Clindamycin CAP] 300 mg PO Q8H #21 cap Acetaminophen/Codeine [Tylenol /Codeine # 3 tab] 1 tab PO Q6H PRN #12 tab PRN Reason: Pain , Severe (7-10) Referrals: JANKI HUTCHINSON MD [Primary Care Provider] - 3-5 Days SAM GARLAND MD [Staff Physician] - 3-5 Days Forms: Work/School Release Form(ED) Time of Disposition: 16:15
== END 2021-01-11 16:54 | disposition home or self-care (01) ==
LOC: ED 13:29
DX: N75.0 Cyst of Bartholin's gland (principal); F12.90 Cannabis use, unspecified, uncomplicated; F17.200 Nicotine dependence, unspecified, uncomplicated; Z76.89 Persons encountering health services in other specified circumstances; Z79.899 Other long term (current) drug therapy; Z98.51 Tubal ligation status
CPT/HCPCS: 56420; 96372; 99282; J2270

== ENCOUNTER 2021-01-14 10:01 | Emergency (ER) | payer SELFPAY ==
[2021-01-14 10:31] VITALS: BP 122/68
[2021-01-14] MEDS ORDERED: HYDROcodone/ACETAMINOPHEN 5-325 MG TAB PO ONE (11:12)
--- NOTE | 2021-01-14 11:12 | Emergency Department Report ---
- General Chief complaint: Wound/Laceration Stated complaint: WOUND CHECK Time Seen by Provider: 01/14/21 11:09 Source: patient Mode of arrival: Ambulatory Limitations: No Limitations - History of Present Illness MD complaint: other -: Gradual, days(s) Severity: severe Consistency: constant Improves with: none Worsens with: none Associated symptoms: denies other symptoms Treatments Prior to Arrival: none - Related Data Previous Rx's Medication Instructions Recorded Last Taken Type Ciprofloxacin HCl [Cipro] 500 mg PO BID #20 tablet 12/25/13 Unknown Rx Hydrocortisone 2.5% [Hytone 2.5% 1 applicatio TP TID #2 tube 02/20/14 Unknown Rx CREAM] Ondansetron [Zofran] 4 mg PO Q6HR PRN #20 tablet 02/20/14 Unknown Rx Vit/Iron Fum/Folic AC 1 each PO QDAY #90 tablet 02/20/14 Unknown Rx [ Vitamin Tablet] metroNIDAZOLE 0.75%(NF) [Metrogel 1 applicatio TP BID #10 tube 02/20/14 Unknown Rx 0.75%] HYDROcodone/ACETAMINOPHEN [[place] 1 each PO Q6HR PRN #20 tablet 02/26/14 Unknown Rx 5/325 Tablet] Ibuprofen [Motrin] 600 mg PO Q8H PRN #60 tablet 02/26/14 Unknown Rx Amoxicillin [Trimox CAP] 500 mg PO BID #20 capsule 04/29/15 Unknown Rx Fluticasone [Flonase] 1 spray NS QDAY #1 bottle 04/29/15 Unknown Rx Ibuprofen [Motrin 800 MG tab] 800 mg PO Q8HR PRN #30 tablet 04/29/15 Unknown Rx Amoxicillin [Trimox CAP] 500 mg PO Q8H 10 Days #30 capsule 08/01/19 Unknown Rx Chlorhexidine Mouthwash [Peridex] 15 ml MM BID #1 bottle 08/01/19 Unknown Rx traMADoL [Ultram] 50 mg PO Q6HR PRN #12 tablet 08/01/19 Unknown Rx Ondansetron [Zofran Odt] 4 mg PO Q6HR PRN #15 tab.rapdis 09/14/19 Unknown Rx Sulfamethoxazole/Trimethoprim 1 each PO BID 10 Days #20 tablet 09/14/19 Unknown Rx [Bactrim DS TAB] guaiFENesin/CODEINE [Robitussin AC] 5 ml PO Q6HR #120 ml 09/14/19 Unknown Rx methylPREDNISolone [Medrol 4MG 4 mg PO DAILY 6 Days #1 tab.ds.pk 09/14/19 Unknown Rx DOSEPAK (21 tabs)] Docusate Sodium [Colace] 100 mg PO BID #30 capsule 10/16/20 Unknown Rx Hydrocortisone 1% [Hydrocortisone 1 applicatio TP TID #1 tube 10/16/20 Unknown Rx 1% CREAM] Lidocaine [Lidocaine GEL] 1 applicatio TP BID PRN #30 10/16/20 Unknown Rx gel..gram. Polyethylene Glycol 3350 [Miralax] 7 gm PO DAILY PRN #1 powder 10/16/20 Unknown Rx metroNIDAZOLE [Flagyl] 500 mg PO BID 7 Days #14 tab 10/17/20 Unknown Rx Acetaminophen/Codeine [Tylenol 1 tab PO Q6H PRN #12 tab 01/11/21 Unknown Rx /Codeine # 3 tab] Clindamycin [Clindamycin CAP] 300 mg PO Q8H #21 cap 01/11/21 Unknown Rx Allergies Allergy/AdvReac Type Severity Reaction Status Date / Time No Known Allergies Allergy Verified 10/16/20 13:01 Abscess Boil HPI - HPI Chief Complaint: Wound/Laceration Stated Complaint: WOUND CHECK Time Seen by Provider: 01/14/21 11:09 Home Medications: Previous Rx's Medication Instructions Recorded Last Taken Type Ciprofloxacin HCl [Cipro] 500 mg PO BID #20 tablet 12/25/13 Unknown Rx Hydrocortisone 2.5% [Hytone 2.5% 1 applicatio TP TID #2 tube 02/20/14 Unknown Rx CREAM] Ondansetron [Zofran] 4 mg PO Q6HR PRN #20 tablet 02/20/14 Unknown Rx Vit/Iron Fum/Folic AC 1 each PO QDAY #90 tablet 02/20/14 Unknown Rx [ Vitamin Tablet] metroNIDAZOLE 0.75%(NF) [Metrogel 1 applicatio TP BID #10 tube 02/20/14 Unknown Rx 0.75%] HYDROcodone/ACETAMINOPHEN [[place] 1 each PO Q6HR PRN #20 tablet 02/26/14 Unknown Rx 5/325 Tablet] Ibuprofen [Motrin] 600 mg PO Q8H PRN #60 tablet 02/26/14 Unknown Rx Amoxicillin [Trimox CAP] 500 mg PO BID #20 capsule 04/29/15 Unknown Rx Fluticasone [Flonase] 1 spray NS QDAY #1 bottle 04/29/15 Unknown Rx Ibuprofen [Motrin 800 MG tab] 800 mg PO Q8HR PRN #30 tablet 04/29/15 Unknown Rx Amoxicillin [Trimox CAP] 500 mg PO Q8H 10 Days #30 capsule 08/01/19 Unknown Rx Chlorhexidine Mouthwash [Peridex] 15 ml MM BID #1 bottle 08/01/19 Unknown Rx traMADoL [Ultram] 50 mg PO Q6HR PRN #12 tablet 08/01/19 Unknown Rx Ondansetron [Zofran Odt] 4 mg PO Q6HR PRN #15 tab.rapdis 09/14/19 Unknown Rx Sulfamethoxazole/Trimethoprim 1 each PO BID 10 Days #20 tablet 09/14/19 Unknown Rx [Bactrim DS TAB] guaiFENesin/CODEINE [Robitussin AC] 5 ml PO Q6HR #120 ml 09/14/19 Unknown Rx methylPREDNISolone [Medrol 4MG 4 mg PO DAILY 6 Days #1 tab.ds.pk 09/14/19 Unknown Rx DOSEPAK (21 tabs)] Docusate Sodium [Colace] 100 mg PO BID #30 capsule 10/16/20 Unknown Rx Hydrocortisone 1% [Hydrocortisone 1 applicatio TP TID #1 tube 10/16/20 Unknown Rx 1% CREAM] Lidocaine [Lidocaine GEL] 1 applicatio TP BID PRN #30 10/16/20 Unknown Rx gel..gram. Polyethylene Glycol 3350 [Miralax] 7 gm PO DAILY PRN #1 powder 10/16/20 Unknown Rx metroNIDAZOLE [Flagyl] 500 mg PO BID 7 Days #14 tab 10/17/20 Unknown Rx Acetaminophen/Codeine [Tylenol 1 tab PO Q6H PRN #12 tab 01/11/21 Unknown Rx /Codeine # 3 tab] Clindamycin [Clindamycin CAP] 300 mg PO Q8H #21 cap 01/11/21 Unknown Rx Allergies/Adverse Reactions: Allergies Allergy/AdvReac Type Severity Reaction Status Date / Time No Known Allergies Allergy Verified 10/16/20 13:01 ED Review of Systems ROS: Stated complaint: WOUND CHECK Other details as noted in HPI Comment: All other systems reviewed and negative ED Past Medical Hx - Past Medical History Previous Medical History?: No Additional medical history: denies - Surgical History Past Surgical History?: Yes Additional Surgical History: TUBAL - Social History Smoking Status: Current Every Day Smoker Substance Use Type: Alcohol, Marijuana - Medications Home Medications: Home Medications Medication Instructions Recorded Confirmed Last Taken Type Ciprofloxacin HCl [Cipro] 500 mg PO BID #20 tablet 12/25/13 Unknown Rx Hydrocortisone 2.5% [Hytone 2.5% 1 applicatio TP TID #2 tube 02/20/14 Unknown Rx CREAM] Ondansetron [Zofran] 4 mg PO Q6HR PRN #20 tablet 02/20/14 Unknown Rx Vit/Iron Fum/Folic AC 1 each PO QDAY #90 tablet 02/20/14 Unknown Rx [ Vitamin Tablet] metroNIDAZOLE 0.75%(NF) [Metrogel 1 applicatio TP BID #10 tube 02/20/14 Unknown Rx 0.75%] HYDROcodone/ACETAMINOPHEN [[place] 1 each PO Q6HR PRN #20 tablet 02/26/14 Unknown Rx 5/325 Tablet] Ibuprofen [Motrin] 600 mg PO Q8H PRN #60 tablet 02/26/14 Unknown Rx Amoxicillin [Trimox CAP] 500 mg PO BID #20 capsule 04/29/15 Unknown Rx Fluticasone [Flonase] 1 spray NS QDAY #1 bottle 04/29/15 Unknown Rx Ibuprofen [Motrin 800 MG tab] 800 mg PO Q8HR PRN #30 tablet 04/29/15 Unknown Rx Amoxicillin [Trimox CAP] 500 mg PO Q8H 10 Days #30 capsule 08/01/19 Unknown Rx Chlorhexidine Mouthwash [Peridex] 15 ml MM BID #1 bottle 08/01/19 Unknown Rx traMADoL [Ultram] 50 mg PO Q6HR PRN #12 tablet 08/01/19 Unknown Rx Ondansetron [Zofran Odt] 4 mg PO Q6HR PRN #15 tab.rapdis 09/14/19 Unknown Rx Sulfamethoxazole/Trimethoprim 1 each PO BID 10 Days #20 tablet 09/14/19 Unknown Rx [Bactrim DS TAB] guaiFENesin/CODEINE [Robitussin AC] 5 ml PO Q6HR #120 ml 09/14/19 Unknown Rx methylPREDNISolone [Medrol 4MG 4 mg PO DAILY 6 Days #1 tab.ds.pk 09/14/19 Unknown Rx DOSEPAK (21 tabs)] Docusate Sodium [Colace] 100 mg PO BID #30 capsule 10/16/20 Unknown Rx Hydrocortisone 1% [Hydrocortisone 1 applicatio TP TID #1 tube 10/16/20 Unknown Rx 1% CREAM] Lidocaine [Lidocaine GEL] 1 applicatio TP BID PRN #30 10/16/20 Unknown Rx gel..gram. Polyethylene Glycol 3350 [Miralax] 7 gm PO DAILY PRN #1 powder 10/16/20 Unknown Rx metroNIDAZOLE [Flagyl] 500 mg PO BID 7 Days #14 tab 10/17/20 Unknown Rx Acetaminophen/Codeine [Tylenol 1 tab PO Q6H PRN #12 tab 01/11/21 Unknown Rx /Codeine # 3 tab] Clindamycin [Clindamycin CAP] 300 mg PO Q8H #21 cap 01/11/21 Unknown Rx ED Physical Exam - General Limitations: No Limitations General appearance: alert, in no apparent distress - Head Head exam: Present: atraumatic, normocephalic - Eye Eye exam: Present: normal appearance - ENT ENT exam: Present: mucous membranes moist - Neck Neck exam: Present: normal inspection - Respiratory Respiratory exam: Present: normal lung sounds bilaterally. Absent: respiratory distress - Cardiovascular Cardiovascular Exam: Present: regular rate, normal rhythm. Absent: systolic murmur, diastolic murmur, rubs, gallop - GI/Abdominal GI/Abdominal exam: Present: soft, normal bowel sounds - Extremities Exam Extremities exam: Present: normal inspection - Back Exam Back exam: Present: normal inspection - Neurological Exam Neurological exam: Present: alert, oriented X3 - Psychiatric Psychiatric exam: Present: normal affect, normal mood - Skin Skin exam: Present: warm, dry, intact, normal color. Absent: rash - Other Other exam information: PACKING REMOVED FROM [facility] ED Course Vital Signs 01/14/21 01/14/21 10:28 10:30 Temperature 97.8 F Pulse Rate 62 Respiratory 17 Rate Blood Pressure 122/68 [Right] O2 Sat by Pulse 97 Oximetry ED Medical Decision Making - Medical Decision Making REMOVED WO DIFFICULTY DC home with discharge plan of care including [facility] [employer] [facility] follow-up. Patient was educated on her first visit about following up with [facility] this was reemphasized that she verbalizes understanding. She is to continue any medications that she has remaining. Have educated her on Epson salts in a warm bathtub that will help relieve her discomfort. Vital Signs 01/14/21 01/14/21 10:28 10:30 Temperature 97.8 F Pulse Rate 62 Respiratory 17 Rate Blood Pressure 122/68 [Right] O2 Sat by Pulse 97 Oximetry - Differential Diagnosis PACKING REMOVAL Critical care attestation.: If time is entered above; I have spent that time in minutes in the direct care of this critically ill patient, excluding procedure time. ED Disposition Clinical Impression: Abscess packing removal Disposition: DC-01 TO HOME OR SELFCARE Is pt being admited?: No Does the pt Need Aspirin: No Condition: Stable Additional Instructions: Continue medications. Aspirin and Tylenol for pain. Follow-up with your [facility] [employer] [facility] as we discussed. Warm baths with Epson salts will help with your pain and discomfort. Referrals: ILEANA ASKEW MD [Staff Physician] - 3-5 Days Time of Disposition: 11:11
== END 2021-01-14 12:00 | disposition home or self-care (01) ==
LOC: ED 10:01
DX: S31.40XD Unspecified open wound of vagina and vulva, subsequent encounter (principal); Z48.00 Encounter for change or removal of nonsurgical wound dressing; F17.200 Nicotine dependence, unspecified, uncomplicated; F12.10 Cannabis abuse, uncomplicated; Z98.890 Other specified postprocedural states; Z79.1 Long term (current) use of non-steroidal anti-inflammatories (NSAID); Z79.2 Long term (current) use of antibiotics; Z79.899 Other long term (current) drug therapy; X58.XXXD Exposure to other specified factors, subsequent encounter
CPT/HCPCS: 99282; 99283